=== PATIENT | female | born 2000 | race African-American/Black ===

== ENCOUNTER 2020-04-17 20:52 | Emergency (ER) | payer MEDICAID ==
[~2020-04-17] VITALS: Ht 162.6 cm; Wt 78.0 kg
[2020-04-17 20:58] VITALS: BP 117/69
== END 2020-04-18 02:36 | disposition left against medical advice (07) ==
LOC: ER 20:52
DX: R10.30 Lower abdominal pain, unspecified (principal); Z53.21 Procedure and treatment not carried out due to patient leaving prior to being seen by health care provider